=== PATIENT | male | born 1950 | race Caucasian/White ===

== ENCOUNTER 2023-07-31 16:05 | Emergency (ER) | payer OTHER, MEDICAID ==
[~2023-07-31] VITALS: Ht 167.6 cm; Wt 68.0 kg
[2023-07-31 16:07] VITALS: O2SAT 98
[2023-07-31] MEDS ORDERED: SODIUM CHLORIDE 0.9% 500 ML IV ONE (16:45)
[2023-07-31] MEDS ORDERED: CALCIUM GLUCONATE 100MG/ML 10ML VIAL IV ONE (16:45)
[2023-07-31 17:08] LABS: BASOPHILS % 1.1 % (0.0-2.0); EOSINOPHILS % 3.7 % (0.0-5.0); HEMATOCRIT. 31.1 % (42.0-52.0); HEMOGLOBIN. 9.9 g/dL (14.0-18.0); LYMPHOCYTES % 29.6 % (20.0-50.0); MEAN CORPUSCULAR HEMOGLOBIN 28.4 pg (28.0-32.0); MEAN CORPUSCULAR VOLUME 88.6 fL (80.0-94.0); MEAN PLATELET VOLUME 8.9 fl (7.4-10.4); MONOCYTES % 7.4 % (2.0-8.0); NEUTROPHILS % 58.2 % (40.0-76.0); PLATELET 170 x1000/uL (130-400); RED BLOOD CELL COUNT 3.51 mill/uL (4.7-6.1); RED CELL DISTRIBUTION WIDTH 15.1 % (11.6-14.6); WHITE BLOOD COUNT 5.2 x1000/uL (4.5-11.0)
[2023-07-31 17:21] LABS: ALANINE AMINOTRANSFERASE 23 IU/L (10-49); ALBUMIN 3.6 g/dL (3.2-4.8); ASPARTATE AMINOTRANSFERASE 27 IU/L (<34); BILIRUBIN TOTAL 0.3 mg/dL (0.1-1.0); CALCIUM 9.3 mg/dL (8.7-10.4); CARBON DIOXIDE 31 mEq/L (21-32); CHLORIDE 101 mEq/L (98-107); CREATININE 1.6 mg/dL (0.6-1.3); GLUCOSE 125 mg/dL (70-105); POTASSIUM 4.3 mEq/L (3.5-5.1); PROTEIN TOTAL 6.2 g/dL (6.0-8.3); SODIUM 137 mEq/L (136-145); TROPONIN I HIGH SENSITIVITY 21 ng/L (3.0-53); UREA NITROGEN BLOOD 26 mg/dL (9-23)
[2023-07-31] MEDS ORDERED: ACETAMINOPHEN 325MG TABLET PO ONE (18:15)
[2023-07-31 18:28] VITALS: TEMP 97.7
[2023-07-31] MEDS ORDERED: HYDRALAZINE 20MG/ML VIAL IV NR (19:30)
[2023-07-31 19:58] LABS: TROPONIN I HIGH SENSITIVITY 18 ng/L (3.0-53)
[2023-07-31] MEDS ORDERED: LACTULOSE 20G/30ML UDC PO ONE (20:30)
[2023-07-31 21:08] VITALS: BP 147/78; PULSE 60; RESP 16
== END 2023-08-01 00:11 | disposition short-term general hospital (02) ==
LOC: ER 16:05 → CANBEDREQ 08-02 15:55
DX: R55 Syncope and collapse (principal); R00.1 Bradycardia, unspecified; E11.9 Type 2 diabetes mellitus without complications; I10 Essential (primary) hypertension; Z86.73 Personal history of transient ischemic attack (TIA), and cerebral infarction without residual deficits
CPT/HCPCS: 80053; 83880; 83690; 85025; 84484; 36415; 71045; 70450; 74176; 93005; 96361; 96374; 96375; 99291; J0610; J0360; J7040; Z7610 ×4

== ENCOUNTER 2023-08-26 18:31 | Emergency (ER) | payer OTHER, MEDICAID ==
[~2023-08-26] VITALS: Ht 172.7 cm; Wt 68.0 kg
[2023-08-26 18:34] VITALS: O2SAT 96
[2023-08-26] MEDS ORDERED: ONDANSETRON HCL 4MG/2ML INJ IV STA (19:32)
[2023-08-26] MEDS ORDERED: FAMOTIDINE 20MG/2ML VIAL IV STA (19:32)
[2023-08-26] MEDS ORDERED: MORPHINE SULFATE 4 MG/ML CPJ (NOT FOR IM USE) IV STA (19:32)
[2023-08-26] MEDS ORDERED: SODIUM CHLORIDE 0.9% 1,000 ML IV ONE (19:45)
[2023-08-26] MEDS ORDERED: ASPIRIN 325MG EC TABLET PO ONE (20:15)
[2023-08-26 20:34] LABS: BASOPHILS % 0.9 % (0.0-2.0); EOSINOPHILS % 4.8 % (0.0-5.0); HEMATOCRIT. 29.1 % (42.0-52.0); HEMOGLOBIN. 9.5 g/dL (14.0-18.0); LYMPHOCYTES % 27.1 % (20.0-50.0); MEAN CORPUSCULAR HEMOGLOBIN 28.6 pg (28.0-32.0); MEAN CORPUSCULAR HGB CONC 32.7 g/dL (31.0-37.0); MEAN CORPUSCULAR VOLUME 87.4 fL (80.0-94.0); MEAN PLATELET VOLUME 8.9 fl (7.4-10.4); MONOCYTES % 6.8 % (2.0-8.0); NEUTROPHILS % 60.4 % (40.0-76.0); PLATELET 159 x1000/uL (130-400); RED BLOOD CELL COUNT 3.33 mill/uL (4.7-6.1); RED CELL DISTRIBUTION WIDTH 15.1 % (11.6-14.6); WHITE BLOOD COUNT 6.2 x1000/uL (4.5-11.0)
[2023-08-26 20:38] LABS: INR 1.1; PROTHROMBIN TIME 11.7 sec (9.6-11.0)
[2023-08-26 20:44] LABS: ALANINE AMINOTRANSFERASE 26 IU/L (10-49); ALBUMIN 3.4 g/dL (3.2-4.8); ASPARTATE AMINOTRANSFERASE 25 IU/L (<34); BILIRUBIN TOTAL 0.3 mg/dL (0.1-1.0); CALCIUM 9.2 mg/dL (8.7-10.4); CARBON DIOXIDE 25 mEq/L (21-32); CHLORIDE 102 mEq/L (98-107); CREATININE 1.3 mg/dL (0.6-1.3); GLUCOSE 99 mg/dL (70-105); POTASSIUM 4.6 mEq/L (3.5-5.1); PROTEIN TOTAL 6.3 g/dL (6.0-8.3); SODIUM 133 mEq/L (136-145); TROPONIN I HIGH SENSITIVITY 27 ng/L (3.0-53); UREA NITROGEN BLOOD 34 mg/dL (9-23)
[2023-08-26 23:51] LABS: TROPONIN I HIGH SENSITIVITY 28 ng/L (3.0-53)
[2023-08-27] MEDS ORDERED: LEVOFLOXACIN 750MG PREMIX 150 ML IV NR (00:15)
[2023-08-27 00:21] VITALS: BP 150/55; PULSE 58; RESP 18; TEMP 98.3
== END 2023-08-27 02:45 | disposition short-term general hospital (02) ==
LOC: ER 18:31 → EDBEDREQTM 20:10 → EDBEDREQ 20:10 → EDBEDREQTM 08-27 01:35 → EDBEDREQ 08-27 01:35 → EDBEDREQDT 08-27 01:35 → EDBEDREQSVC 08-27 01:35 → CANBEDREQ 08-27 01:35 → ER 08-27 02:45
DX: R07.9 Chest pain, unspecified (principal); E11.9 Type 2 diabetes mellitus without complications; I10 Essential (primary) hypertension; Z86.73 Personal history of transient ischemic attack (TIA), and cerebral infarction without residual deficits
CPT/HCPCS: 99285; 74176; 96375; 71045; 96361; 80053; 83605; 83690; 85025; 85610; 84484; 36415; 93005; 96365; J3490; J2405; J2270; J7030; J1956

== ENCOUNTER 2024-09-02 01:21 | Inpatient (IN) | payer OTHER, MEDICAID, MEDICARE ==
[~2024-09-02] VITALS: Ht 167.6 cm; Wt 73.0 kg
[2024-09-02 01:25] VITALS: PULSE 71; RESP 27; O2SAT 99
[2024-09-02] MEDS: SODIUM CHLORIDE 0.9% (SEPSIS BOLUS) IV ONE (01:44)
[2024-09-02] MEDS ORDERED: FENTANYL 2500MCG/250ML PMX 250 ML IV ONE ×2 (02:00→02:15)
[2024-09-02] MEDS: PIPERACILLIN/TAZO 3.375G/50ML 50 ML IV ONE (02:22)
[2024-09-02] MEDS: NOREPINEPHRINE 8MG/250ML PMX 250 ML IV ONE ×2 (02:22)
[2024-09-02] MEDS: PROPOFOL 10MG/ML 100ML 100 ML IV ONE (02:23)
[2024-09-02 02:27] LABS: BASOPHILS % 1.2 % (0.0-2.0); EOSINOPHILS % 0.5 % (0.0-5.0); HEMATOCRIT. 23.6 % (42.0-52.0); HEMOGLOBIN. 7.5 g/dL (14.0-18.0); MEAN CORPUSCULAR HGB CONC 31.6 g/dL (31.0-37.0); MEAN CORPUSCULAR VOLUME 91.6 fL (80.0-94.0); MEAN PLATELET VOLUME 10.6 fl (7.4-10.4); NEUTROPHILS % 51.3 % (40.0-76.0); PLATELET 132 x1000/uL (130-400); RED BLOOD CELL COUNT 2.58 mill/uL (4.7-6.1); RED CELL DISTRIBUTION WIDTH 20.1 % (11.6-14.6); WHITE BLOOD COUNT 6.4 x1000/uL (4.5-11.0)
[2024-09-02 02:37] LABS: INR 1.4; PROTHROMBIN TIME 15.6 sec (9.6-11.0)
[2024-09-02 02:39] LABS: CHLORIDE 104 mEq/L (98-107); POTASSIUM 4.5 mEq/L (3.5-5.1); SODIUM 138 mEq/L (136-145)
[2024-09-02 02:40] LABS: CALCIUM 7.6 mg/dL (8.7-10.4); CARBON DIOXIDE 22 mEq/L (21-32)
[2024-09-02 02:45] LABS: CREATININE 1.6 mg/dL (0.6-1.3); GLUCOSE 158 mg/dL (70-105); UREA NITROGEN BLOOD 34 mg/dL (9-23)
[2024-09-02 02:47] LABS: ALBUMIN 2.4 g/dL (3.2-4.8); BILIRUBIN DIRECT 0.2 mg/dL (<=3.0); CREATINE KINASE 84 IU/L (46-171)
[2024-09-02 02:48] LABS: BILIRUBIN TOTAL 0.4 mg/dL (0.1-1.0); PROTEIN TOTAL 5.2 g/dL (6.0-8.3)
[2024-09-02] MEDS: VANCOMYCIN 1G PREMIX 200 ML IV ONE (02:49)
[2024-09-02] MEDS: FENTANYL 1000 MCG/100 ML IV ONE (02:50)
[2024-09-02 02:58] LABS: LACTATE DEHYDROGENASE 2353 IU/L (120-246)
[2024-09-02 02:59] LABS: ALANINE AMINOTRANSFERASE 1146 IU/L (10-49); ASPARTATE AMINOTRANSFERASE 1490 IU/L (<34)
[2024-09-02 03:21] LABS: BG BASE EXCESS -8.6 mmol/L (-2.0-3.0); BG CARBOXYHEMOGLOBIN 0.9 % (0.5-1.5); BG DEOXYHEMOGLOBIN 0.3 % (0.0-5.0); BG FRACTION INSPIRED OXYGEN 100; BG HCO3 ACT 16.8 mmol/L (21.0-28.0); BG METHEMOGLOBIN 0.3 % (0.5-1.5); BG OXYGEN SATURATION 99.7 % (94.0-98.0); BG OXYHEMOGLOBIN 98.5 % (94.0-98.0); BG PCO2 34.1 mmHg (35.0-48.0); BG PH 7.311 (7.350-7.450); BG PO2 384.1 mmHg (83.0-108.0); BG SAMPLE SITE RIGHT BRACHIAL; BG TOTAL RESPIRATORY RATE 17 b/min; BG VENT MODE VENT - AC
[2024-09-02 04:14] LABS: ETHANOL BLOOD < 10 mg/dL (<10); LACTIC ACID 8.6 mmol/L (0.4-2.0); TROPONIN I HIGH SENSITIVITY 141 ng/L (3.0-53)
[2024-09-02] MEDS ORDERED: ACETAMINOPHEN 650MG SUPP PR PRN (05:15)
[2024-09-02] MEDS ORDERED: ONDANSETRON HCL 4MG/2ML INJ IV PRN (05:15)
[2024-09-02] MEDS ORDERED: IPRATROPIUM/ALBUTEROL 0.5-3(2.5)MG/3ML NEB HHN PRN (05:15)
[2024-09-02] MEDS ORDERED: PANTOPRAZOLE SODIUM 40 MG/VIAL IV SCH (05:15)
[2024-09-02 05:20] LABS: CLARITY URINE CLOUDY (CLEAR); COLOR URINE YELLOW (YELLOW); GLUCOSE URINE NEGATIVE (NEGATIVE); KETONES URINE NEGATIVE (NEGATIVE); LEUKOCYTE ESTERASE URINE NEGATIVE (NEGATIVE); NITRITE URINE NEGATIVE (NEGATIVE); OCCULT BLOOD URINE NEGATIVE (NEGATIVE); PROTEIN URINE 2+ (NEGATIVE); SPECIFIC GRAVITY URINE 1.016 (1.005-1.030); UROBILINOGEN URINE 0.2 E.U./dL (0.2-1.0)
[2024-09-02] MEDS: SODIUM CHLORIDE 0.9% 1,000 ML IV SCH (05:22)
[2024-09-02 06:07] LABS: SQUAMOUS EPITHELIAL CELL URINE NONE SEEN /lpf (RARE/1+); WBC URINE 0-2 /hpf (0-2)
[2024-09-02 06:08] LABS: BACTERIA URINE NONE SEEN
[2024-09-02 06:34] LABS: BG BASE EXCESS -5.6 mmol/L (-2.0-3.0); BG CARBOXYHEMOGLOBIN 0.8 % (0.5-1.5); BG DEOXYHEMOGLOBIN 4.1 % (0.0-5.0); BG FRACTION INSPIRED OXYGEN 40; BG HCO3 ACT 19.4 mmol/L (21.0-28.0); BG OXYGEN SATURATION 95.9 % (94.0-98.0); BG OXYHEMOGLOBIN 95.1 % (94.0-98.0); BG PCO2 36.2 mmHg (35.0-48.0); BG PH 7.347 (7.350-7.450); BG PO2 86.2 mmHg (83.0-108.0); BG SAMPLE SITE LEFT RADIAL; BG TOTAL HEMOGLOBIN 11.3 g/dL (13.5-17.5); BG VENT MODE VENT - AC
[2024-09-02] MEDS: IOHEXOL-350 100 ML BOTTLE ONE (07:30)
[2024-09-02 07:35] LABS: HEMATOCRIT 26.4 % (42.0-52.0); HEMOGLOBIN 8.7 g/dL (14.0-18.0)
[2024-09-02 08:05] LABS: CREATINE KINASE 258 IU/L (46-171)
[2024-09-02 08:06] LABS: PHOSPHORUS 4.2 mg/dL (2.5-4.9)
[2024-09-02] MEDS: INSULIN LISPRO 100 UNITS/ML SUBCUT SCH (08:20)
[2024-09-02 08:22] VITALS: PULSE 57; RESP 16; O2SAT 99
[2024-09-02 08:37] LABS: TROPONIN I HIGH SENSITIVITY 2072 ng/L (3.0-53)
[2024-09-02] MEDS: BLOOD SUGAR DIAGNOSTIC STRIP TEST SCH (08:46)
[2024-09-02] MEDS: LEVETIRACETAM 1000MG PREMIX 100 ML IV SCH (09:11)
[2024-09-02] MEDS: PANTOPRAZOLE SODIUM 40 MG/VIAL IV SCH (09:12)
[2024-09-02 12:25] LABS: HEMATOCRIT 27.7 % (42.0-52.0); HEMOGLOBIN 9.3 g/dL (14.0-18.0)
[2024-09-02] MEDS: VANCOMYCIN 500MG PREMIX 100 ML IV SCH (12:27)
[2024-09-02 12:33] LABS: POTASSIUM 3.9 mEq/L (3.5-5.1)
[2024-09-02 12:34] LABS: CALCIUM 7.8 mg/dL (8.7-10.4)
[2024-09-02 12:39] LABS: CREATININE 1.8 mg/dL (0.6-1.3)
[2024-09-02 13:00] VITALS: PULSE 63; RESP 16; O2SAT 100
[2024-09-02] MEDS: PIPERACILLIN/TAZO 3.375G/50ML 50 ML IV SCH (14:25)
[2024-09-02 17:44] VITALS: PULSE 54; RESP 16; O2SAT 100
[2024-09-02 19:00] LABS: BASOPHILS % 0.2 % (0.0-2.0); HEMATOCRIT. 22.8 % (42.0-52.0); HEMOGLOBIN. 7.6 g/dL (14.0-18.0); LYMPHOCYTES % 4.6 % (20.0-50.0); MEAN CORPUSCULAR HEMOGLOBIN 28.6 pg (28.0-32.0); MEAN CORPUSCULAR HGB CONC 33.3 g/dL (31.0-37.0); MEAN CORPUSCULAR VOLUME 85.7 fL (80.0-94.0); MONOCYTES % 3.4 % (2.0-8.0); NEUTROPHILS % 91.8 % (40.0-76.0); PLATELET 88 x1000/uL (130-400); RED BLOOD CELL COUNT 2.66 mill/uL (4.7-6.1); RED CELL DISTRIBUTION WIDTH 19.1 % (11.6-14.6); WHITE BLOOD COUNT 9.3 x1000/uL (4.5-11.0)
[2024-09-02 19:08] LABS: POTASSIUM 3.9 mEq/L (3.5-5.1)
[2024-09-02 19:09] LABS: CALCIUM 7.3 mg/dL (8.7-10.4)
[2024-09-02 19:14] LABS: CREATININE 1.8 mg/dL (0.6-1.3); DIFFERENTIAL COMMENT 1
[2024-09-02 19:15] LABS: CREATINE KINASE MB FRACTION 13.3 ng/mL (0.5-3.6)
[2024-09-02] MEDS ORDERED: NOREPINEPHRINE 8MG/250ML PMX 250 ML IV PRN (20:45)
[2024-09-02] MEDS ORDERED: FENTANYL CITRATE/PF 1,000 MCG in SODIUM CHLORIDE 0.9% 80 ML IV PRN (20:46)
[2024-09-02] MEDS: FENTANYL CITRATE/PF 1,000 MCG in SODIUM CHLORIDE 0.9% 80 ML IV PRN (20:59)
[2024-09-02] MEDS ORDERED: VANCOMYCIN 1GM/200ML PMX (BAXTER) IV SCH (21:00)
[2024-09-02] MEDS: PROPOFOL 10MG/ML 100ML 100 ML IV PRN (21:03)
[2024-09-02 21:19] LABS: HEMATOCRIT 22.5 % (42.0-52.0); HEMOGLOBIN 7.5 g/dL (14.0-18.0)
[2024-09-02 21:58] VITALS: PULSE 51; RESP 16; O2SAT 99
[2024-09-03] VITALS (72 sets, daily range): BP systolic 93–160; BP diastolic 45–70; PULSE 44–61; RESP 0–16; TEMP 36.22512–37.1408; O2SAT 96–100
[2024-09-03] MEDS: ATROPINE SULFATE 1MG/10ML SYR IV NR (05:30)
[2024-09-03] MEDS: DEXTROSE 50% WATER 50ML SYRINGE IV PRN (08:17)
[2024-09-03] MEDS: DEXT 5%/0.9% NACL 1,000 ML IV SCH (11:26)
[2024-09-03 11:27] LABS: BG BASE EXCESS -1.7 mmol/L (-2.0-3.0); BG CARBOXYHEMOGLOBIN 0.3 % (0.5-1.5); BG DEOXYHEMOGLOBIN 2.1 % (0.0-5.0); BG FRACTION INSPIRED OXYGEN 40; BG HCO3 ACT 22.6 mmol/L (21.0-28.0); BG METHEMOGLOBIN 0.3 % (0.5-1.5); BG OXYGEN SATURATION 97.9 % (94.0-98.0); BG OXYHEMOGLOBIN 97.3 % (94.0-98.0); BG PCO2 36.2 mmHg (35.0-48.0); BG PH 7.413 (7.350-7.450); BG PO2 114.4 mmHg (83.0-108.0); BG SAMPLE SITE RIGHT RADIAL; BG TOTAL HEMOGLOBIN 9.8 g/dL (13.5-17.5); BG VENT MODE VENT - AC
[2024-09-03 12:32] LABS: HEMATOCRIT. 25.1 % (42.0-52.0); MEAN CORPUSCULAR HEMOGLOBIN 27.9 pg (28.0-32.0); MEAN CORPUSCULAR HGB CONC 31.9 g/dL (31.0-37.0); MEAN CORPUSCULAR VOLUME 87.4 fL (80.0-94.0); MEAN PLATELET VOLUME 9.3 fl (7.4-10.4); PLATELET 95 x1000/uL (130-400); RED BLOOD CELL COUNT 2.87 mill/uL (4.7-6.1); RED CELL DISTRIBUTION WIDTH 19.8 % (11.6-14.6); WHITE BLOOD COUNT 10.7 x1000/uL (4.5-11.0)
[2024-09-03] MEDS: IPRATROPIUM/ALBUTEROL 0.5-3(2.5)MG/3ML NEB HHN SCH (12:33)
[2024-09-03 12:49] LABS: CALCIUM 7.6 mg/dL (8.7-10.4); CHLORIDE 109 mEq/L (98-107); POTASSIUM 3.9 mEq/L (3.5-5.1); SODIUM 140 mEq/L (136-145)
[2024-09-03 12:50] LABS: CARBON DIOXIDE 22 mEq/L (21-32)
[2024-09-03 12:55] LABS: GLUCOSE 77 mg/dL (70-105)
[2024-09-03 12:56] LABS: LDL CHOLESTEROL 12 mg/dL (5-100); TRIGLYCERIDE 64 mg/dL (0-150); UREA NITROGEN BLOOD 46 mg/dL (9-23)
[2024-09-03 12:57] LABS: CHOLESTEROL 59 mg/dL (<200); HDL CHOLESTEROL < 20 mg/dL (>55); THYROID STIMULATING HORMONE 5.82 uIU/mL (0.55-4.78)
[2024-09-03 12:58] LABS: PHOSPHORUS 3.7 mg/dL (2.5-4.9)
[2024-09-03 12:59] LABS: DIFFERENTIAL COMMENT 1
[2024-09-03 13:20] LABS: TROPONIN I HIGH SENSITIVITY 2621 ng/L (3.0-53)
[2024-09-03 13:39] LABS: ANISOCYTOSIS 2+; PLATELET ESTIMATE DECREASED
[2024-09-03 13:40] LABS: MICROCYTOSIS 1+
[2024-09-03] MEDS: VANCOMYCIN 750MG PMX (XELLIA) 150 ML IV SCH (21:38)
[2024-09-04] VITALS (57 sets, daily range): BP systolic 108–137; BP diastolic 48–85; PULSE 53–71; RESP 0–25; TEMP 36.33624–36.61404; O2SAT 91–100
[2024-09-04 06:04] LABS: BASOPHILS % 0.7 % (0.0-2.0); HEMATOCRIT. 23.7 % (42.0-52.0); HEMOGLOBIN. 7.8 g/dL (14.0-18.0); LYMPHOCYTES % 10.4 % (20.0-50.0); MEAN CORPUSCULAR HEMOGLOBIN 29.2 pg (28.0-32.0); MEAN CORPUSCULAR HGB CONC 32.9 g/dL (31.0-37.0); MEAN CORPUSCULAR VOLUME 88.7 fL (80.0-94.0); MEAN PLATELET VOLUME 8.9 fl (7.4-10.4); MONOCYTES % 4.4 % (2.0-8.0); NEUTROPHILS % 82.5 % (40.0-76.0); PLATELET 86 x1000/uL (130-400); RED BLOOD CELL COUNT 2.67 mill/uL (4.7-6.1); RED CELL DISTRIBUTION WIDTH 19.4 % (11.6-14.6); WHITE BLOOD COUNT 11.3 x1000/uL (4.5-11.0)
[2024-09-04 06:30] LABS: POTASSIUM 4.8 mEq/L (3.5-5.1)
[2024-09-04 06:31] LABS: CALCIUM 7.5 mg/dL (8.7-10.4)
[2024-09-04 06:36] LABS: CREATININE 2.4 mg/dL (0.6-1.3)
[2024-09-04 10:54] LABS: BG BASE EXCESS -1.5 mmol/L (-2.0-3.0); BG CARBOXYHEMOGLOBIN 1.7 % (0.5-1.5); BG DEOXYHEMOGLOBIN 1.1 % (0.0-5.0); BG FRACTION INSPIRED OXYGEN 35; BG HCO3 ACT 23.2 mmol/L (21.0-28.0); BG METHEMOGLOBIN 0.2 % (0.5-1.5); BG OXYGEN SATURATION 98.9 % (94.0-98.0); BG PCO2 38.8 mmHg (35.0-48.0); BG PH 7.395 (7.350-7.450); BG SAMPLE SITE RIGHT RADIAL; BG TOTAL HEMOGLOBIN 7.3 g/dL (13.5-17.5); BG VENT MODE VENT - AC
[2024-09-04] MEDS: CEFEPIME 2GM/50ML DUPLEX 50 ML IV SCH (20:55)
[2024-09-04] MEDS: METRONIDAZOLE 500 MG PREMIX 100 ML IV SCH (21:00)
[2024-09-05] VITALS (82 sets, daily range): BP systolic 121–153; BP diastolic 48–100; PULSE 55–124; RESP 0–26; TEMP 36.61404–36.6696; O2SAT 94–100
[2024-09-05 06:17] LABS: POTASSIUM 3.9 mEq/L (3.5-5.1)
[2024-09-05 06:18] LABS: CALCIUM 7.9 mg/dL (8.7-10.4)
[2024-09-05 06:21] LABS: CREATININE 2.5 mg/dL (0.6-1.3)
[2024-09-05 08:45] LABS: BG CARBOXYHEMOGLOBIN 1.3 % (0.5-1.5); BG DEOXYHEMOGLOBIN 0.4 % (0.0-5.0); BG FRACTION INSPIRED OXYGEN 50; BG HCO3 ACT 18.7 mmol/L (21.0-28.0); BG METHEMOGLOBIN 0.2 % (0.5-1.5); BG OXYGEN SATURATION 99.6 % (94.0-98.0); BG OXYHEMOGLOBIN 98.1 % (94.0-98.0); BG PCO2 33.2 mmHg (35.0-48.0); BG PH 7.368 (7.350-7.450); BG SAMPLE SITE RIGHT RADIAL; BG TOTAL HEMOGLOBIN 7.8 g/dL (13.5-17.5); BG VENT MODE VENT - AC
[2024-09-05] MEDS: MIDAZOLAM 100MG/100ML PMX 100 ML IV PRN (23:26)
[2024-09-06] VITALS (104 sets, daily range): BP systolic 107–154; BP diastolic 51–79; PULSE 46–79; RESP 0–18; TEMP 36.1–36.78072; O2SAT 96–100
[2024-09-06 06:26] LABS: CALCIUM 7.8 mg/dL (8.7-10.4); POTASSIUM 3.6 mEq/L (3.5-5.1)
[2024-09-06 06:32] LABS: CREATININE 2.5 mg/dL (0.6-1.3)
[2024-09-06 07:47] LABS: MEAN CORPUSCULAR HGB CONC 33.1 g/dL (31.0-37.0); MEAN CORPUSCULAR VOLUME 87.7 fL (80.0-94.0); MEAN PLATELET VOLUME 9.2 fl (7.4-10.4); PLATELET 70 x1000/uL (130-400); RED BLOOD CELL COUNT 2.34 mill/uL (4.7-6.1); RED CELL DISTRIBUTION WIDTH 19.3 % (11.6-14.6); WHITE BLOOD COUNT 10.9 x1000/uL (4.5-11.0)
[2024-09-06 09:34] LABS: DIFFERENTIAL COMMENT 1
[2024-09-06 09:36] LABS: HEMOGLOBIN. 6.8 g/dL (14.0-18.0)
[2024-09-06 09:37] LABS: HEMATOCRIT. 20.5 % (42.0-52.0)
[2024-09-06] MEDS ORDERED: LIDOCAINE HCL 1% 10 MG/ML 10ML VIAL ONE (10:22)
[2024-09-06 10:26] LABS: BG CARBOXYHEMOGLOBIN 1.5 % (0.5-1.5); BG DEOXYHEMOGLOBIN 0.6 % (0.0-5.0); BG FRACTION INSPIRED OXYGEN 50; BG HCO3 ACT 18.9 mmol/L (21.0-28.0); BG METHEMOGLOBIN 0.2 % (0.5-1.5); BG OXYGEN SATURATION 99.4 % (94.0-98.0); BG OXYHEMOGLOBIN 97.7 % (94.0-98.0); BG PCO2 33.8 mmHg (35.0-48.0); BG PH 7.365 (7.350-7.450); BG PO2 166.2 mmHg (83.0-108.0); BG SAMPLE SITE RIGHT RADIAL; BG TOTAL HEMOGLOBIN 5.8 g/dL (13.5-17.5); BG VENT MODE VENT - AC
[2024-09-06 17:04] LABS: ANISOCYTOSIS 2+; HYPOCHROMASIA 2+; MICROCYTOSIS 1+; PLATELET ESTIMATE DECREASED
[2024-09-07] VITALS (100 sets, daily range): BP systolic 113–157; BP diastolic 59–89; PULSE 50–73; RESP 9–23; TEMP 36.1–36.8; O2SAT 97–100
[2024-09-07 06:25] LABS: BASOPHILS % 0.4 % (0.0-2.0); EOSINOPHILS % 1.5 % (0.0-5.0); HEMATOCRIT. 26.8 % (42.0-52.0); MEAN CORPUSCULAR HEMOGLOBIN 28.8 pg (28.0-32.0); MEAN CORPUSCULAR HGB CONC 33.3 g/dL (31.0-37.0); MEAN CORPUSCULAR VOLUME 86.4 fL (80.0-94.0); MEAN PLATELET VOLUME 9.4 fl (7.4-10.4); MONOCYTES % 6.6 % (2.0-8.0); NEUTROPHILS % 83.5 % (40.0-76.0); PLATELET 56 x1000/uL (130-400); RED BLOOD CELL COUNT 3.11 mill/uL (4.7-6.1); RED CELL DISTRIBUTION WIDTH 18.6 % (11.6-14.6)
[2024-09-07 06:40] LABS: HEMOGLOBIN. 8.9 g/dL (14.0-18.0)
[2024-09-07 06:57] LABS: POTASSIUM 3.6 mEq/L (3.5-5.1)
[2024-09-07 07:02] LABS: CREATININE 2.3 mg/dL (0.6-1.3)
[2024-09-07 11:12] LABS: BG BASE EXCESS -5.5 mmol/L (-2.0-3.0); BG CARBOXYHEMOGLOBIN 0.3 % (0.5-1.5); BG DEOXYHEMOGLOBIN 1.5 % (0.0-5.0); BG FRACTION INSPIRED OXYGEN 40; BG HCO3 ACT 19.5 mmol/L (21.0-28.0); BG METHEMOGLOBIN 0.3 % (0.5-1.5); BG OXYGEN SATURATION 98.5 % (94.0-98.0); BG OXYHEMOGLOBIN 97.9 % (94.0-98.0); BG PH 7.351 (7.350-7.450); BG PO2 116.2 mmHg (83.0-108.0); BG TOTAL HEMOGLOBIN 9.4 g/dL (13.5-17.5); BG VENT MODE VENT - AC
[2024-09-08] VITALS (66 sets, daily range): BP systolic 125–167; BP diastolic 54–78; PULSE 59–78; RESP 9–24; TEMP 36.2–37.1; O2SAT 98–100
[2024-09-08 05:59] LABS: POTASSIUM 3.9 mEq/L (3.5-5.1)
[2024-09-08 06:04] LABS: HEMATOCRIT. 29.3 % (42.0-52.0); HEMOGLOBIN. 9.7 g/dL (14.0-18.0); MEAN CORPUSCULAR HEMOGLOBIN 28.7 pg (28.0-32.0); MEAN CORPUSCULAR HGB CONC 33.2 g/dL (31.0-37.0); MEAN CORPUSCULAR VOLUME 86.3 fL (80.0-94.0); MEAN PLATELET VOLUME 9.4 fl (7.4-10.4); PLATELET 65 x1000/uL (130-400); RED CELL DISTRIBUTION WIDTH 19.2 % (11.6-14.6); WHITE BLOOD COUNT 8.6 x1000/uL (4.5-11.0)
[2024-09-08 06:05] LABS: CREATININE 2.2 mg/dL (0.6-1.3)
[2024-09-08 06:36] LABS: DIFFERENTIAL COMMENT 1
[2024-09-08] MEDS: VANCOMYCIN 1G PREMIX 200 ML IV NR (09:46)
[2024-09-08] MEDS: PIPERACILLIN/TAZO 3.375G/50ML 50 ML IV SCH (09:46)
[2024-09-08 17:24] LABS: NUCLEATED RED BLOOD CELLS 1 /100 WBC; PLATELET ESTIMATE MARKEDLY DECREASED
[2024-09-08 17:25] LABS: ANISOCYTOSIS 2+; MICROCYTOSIS 1+
== END 2024-09-08 18:15 | disposition short-term general hospital (02) | DRG 870 ==
LOC: ER 01:21 → EDBEDREQ 01:41 → CVICU 03:47 → EDBEDREQ 03:58 → EDBEDREQTM 03:58 → MICUSO 09-05 08:58
PROVIDERS: ADMIT Internal Medicine; ATTEND Internal Medicine
PROC: 0BH17EZ Insertion of Endotracheal Airway into Trachea, Via Natural or Artificial Opening (ICD-10-PCS; principal; 2024-09-02)
PROC: 5A1955Z Respiratory Ventilation, Greater than 96 Consecutive Hours (ICD-10-PCS; 2024-09-02)
PROC: 5A12012 Performance of Cardiac Output, Single, Manual (ICD-10-PCS; 2024-09-02)
PROC: 4A00X4Z Measurement of Central Nervous Electrical Activity, External Approach (ICD-10-PCS; 2024-09-05)
PROC: 02HV33Z Insertion of Infusion Device into Superior Vena Cava, Percutaneous Approach (ICD-10-PCS; 2024-09-06)
PROC: B548ZZA Ultrasonography of Superior Vena Cava, Guidance (ICD-10-PCS; 2024-09-06)
PROC: 30233N1 Transfusion of Nonautologous Red Blood Cells into Peripheral Vein, Percutaneous Approach (ICD-10-PCS; 2024-09-07)
DX: A41.9 Sepsis, unspecified organism (principal); G92.8 Other toxic encephalopathy; J69.0 Pneumonitis due to inhalation of food and vomit; J96.01 Acute respiratory failure with hypoxia; R65.21 Severe sepsis with septic shock; I46.9 Cardiac arrest, cause unspecified; K72.00 Acute and subacute hepatic failure without coma; I21.A1 Myocardial infarction type 2; N17.0 Acute kidney failure with tubular necrosis; J90 Pleural effusion, not elsewhere classified; E87.20 Acidosis, unspecified; E44.0 Moderate protein-calorie malnutrition; Z20.822 Contact with and (suspected) exposure to COVID-19; G40.909 Epilepsy, unspecified, not intractable, without status epilepticus; R73.9 Hyperglycemia, unspecified; I27.20 Pulmonary hypertension, unspecified; L89.620 Pressure ulcer of left heel, unstageable; S80.811A Abrasion, right lower leg, initial encounter; D64.9 Anemia, unspecified; S81.802A Unspecified open wound, left lower leg, initial encounter; S81.801A Unspecified open wound, right lower leg, initial encounter; G89.29 Other chronic pain; I10 Essential (primary) hypertension; Z74.01 Bed confinement status; I69.334 Monoplegia of upper limb following cerebral infarction affecting left non-dominant side; Z79.4 Long term (current) use of insulin; Z79.899 Other long term (current) drug therapy; Z68.26 Body mass index [BMI] 26.0-26.9, adult; X58.XXXA Exposure to other specified factors, initial encounter; Y93.89 Activity, other specified; Y92.89 Other specified places as the place of occurrence of the external cause; Y99.8 Other external cause status
CPT/HCPCS: 31500; 36415; 36573; 36600; 70551; 71045; 71275; 74174; 80048; 80061; 80076; 80202; 80320; 81003; 82375; 82550; 82553; 82805; 82962; 83036; 83605; 83615; 83735; 83880; 84100; 84145; 84439; 84443; 84484; 85014; 85018; 85025; 86850; 86870; 86900; 86920; 87070; 87077; 87186; 87420; 87426; 87804; 93005; 93306; 93970; 94002; 94003; 94070; 94640; 94664; 95816; 98960; 99291; A4606; A6261; C1725; J0461; J0692; J1953; J2003; J2250; J2470; J2543; J2704; J3010; J3370; J3490; J7030; J7042; P9016; Q9967; G0480